=== PATIENT | female | born 1975 | race Caucasian/White ===

== ENCOUNTER 2021-07-29 13:47 | Emergency (ER) | payer MEDICAID, OTHER ==
[~2021-07-29] VITALS: Ht 162.6 cm; Wt 86.4 kg
[2021-07-29 14:51] VITALS: BP 122/71
--- NOTE | 2021-07-29 14:54 | NUR ---
NA x2 earlier. Answered on third call at time of triage.
--- NOTE | 2021-07-29 16:06 | NUR ---
DISCHARGED BY PEPITO DELONG
== END 2021-07-29 16:08 | disposition home or self-care (01) ==
LOC: ED 15:00
DX: R23.4 Changes in skin texture (principal)
CPT/HCPCS: 99281